=== PATIENT | female | born 1965 | race Hispanic/Latino ===

== ENCOUNTER 2019-01-10 21:34 | Emergency (ER) | payer SELFPAY ==
[~2019-01-10] VITALS: Ht 154.9 cm; Wt 77.1 kg
--- OUTSIDE RECORDS SUMMARY | 2019-01-10 21:38 | XMS REPORT ---
[facility] Phone Unavailable Care Team Providers Care Permit Technician Name Role Phone Unavailable Unavailable Problems This patient has no known problems. Allergies, Adverse Reactions, Alerts This patient has no known allergies or adverse reactions. Medications This patient has no known medications. Encounters Start Date/Time End Date/Time Encounter Type Admission Type Attending [facility] Care Department Encounter ID 2019-02-09 00:00:00 2019-02-09 00:00:00 Outpatient [facility] [id number] 2018-12-20 00:00:00 2018-12-20 00:00:00 Outpatient [facility] [id number] 2018-08-23 09:43:28 2018-08-23 09:43:28 Outpatient [facility] [id number] 2018-08-23 07:41:02 2018-08-23 07:41:02 Outpatient [facility] [id number] 2018-05-05 15:00:33 2018-05-05 15:00:33 Outpatient [facility] [id number] 2018-05-05 10:44:08 2018-05-05 10:44:08 Outpatient [facility] [id number] 2018-05-05 00:00:00 2018-05-05 00:00:00 Outpatient [facility] [id number] 2018-05-03 08:58:57 2018-05-03 08:58:57 Outpatient [facility] [id number] 2018-04-28 00:00:00 2018-04-28 00:00:00 Outpatient [facility] [id number] 2018-04-28 00:00:00 2018-04-28 00:00:00 Outpatient [facility] [id number] 2018-04-26 00:00:00 2018-04-26 00:00:00 Outpatient [facility] [id number] 2018-04-25 00:00:00 2018-04-25 00:00:00 Outpatient [facility] [id number] 2018-04-21 11:39:07 2018-04-21 11:39:07 Outpatient [facility] [id number] 2018-04-21 11:28:26 2018-04-21 11:28:26 Outpatient [facility] [id number] 2018-04-21 09:08:04 2018-04-21 09:08:04 Outpatient [facility] [id number] 2018-04-21 00:00:00 2018-04-21 00:00:00 Outpatient [facility] [id number] 2018-03-01 00:00:00 2018-03-01 00:00:00 Outpatient [facility] [id number] 2018-01-13 00:00:00 2018-01-13 00:00:00 Outpatient [facility] [id number] 2017-12-23 09:56:57 2017-12-23 09:56:57 Outpatient [facility] [id number] 2017-12-23 08:14:41 2017-12-23 08:14:41 Outpatient [facility] [id number] 2017-05-04 00:00:00 2017-05-04 00:00:00 Outpatient [facility] [id number]
[2019-01-10] MEDS ORDERED: DEXAMETHASONE SOD PHOS 10 MG/1 ML VIAL IV ONE (22:15)
[2019-01-10] MEDS ORDERED: TRAMADOL HCL 50 MG TAB PO ONE (22:15)
[2019-01-10] MEDS ORDERED: DEXAMETHASONE 10MG/ML PF INJ ONE (22:20)
[2019-01-10] MEDS ORDERED: TRAMADOL HCL 50 MG TAB ONE (22:22)
== END 2019-01-10 22:45 | disposition home or self-care (01) ==
LOC: FSED 21:34
DX: R52 Pain, unspecified (principal); G89.29 Other chronic pain; M06.9 Rheumatoid arthritis, unspecified
CPT/HCPCS: 99282